=== PATIENT | male | born 1940 | race Hispanic/Latino ===

== ENCOUNTER → 2019-03-01 | Outpatient (CLI) | payer OTHER ==
[~2019-03-01] MED LIST: AEC81 PO; ATOR40TA69 PO; CARV6.25 PO; FURO20TA4 PO; Folic Acid/Vitamin B Comp W-C PO; HYDR-4068 PO; LISI2.5T2 PO; MONT10TA24 PO; SPIR25TA PO; TICA90TA PO; TORS20TA4 PO
== END | disposition home or self-care (01) ==
LOC: SHCH 13:41
PROVIDERS: ATTEND Internal Medicine Cardiovascular Disease
DX: I11.9 Hypertensive heart disease without heart failure (principal); I08.0 Rheumatic disorders of both mitral and aortic valves
CPT/HCPCS: 93306

== ENCOUNTER → 2019-07-09 | Outpatient (CLI) | payer OTHER ==
[~2019-07-09] VITALS: Ht 172.7 cm; Wt 77.4 kg
[~2019-07-09] MED LIST changes: +CEFAZOLIN SODIUM 1 GM VIAL IVP SCH; -FURO20TA4 PO; -LISI2.5T2 PO; +SODIUM CHLORIDE 0.9% 500ML 500 ML IV SCH; -SPIR25TA PO
[2019-07-09 08:42] LABS: BASOPHILS % (AUTO) 0.7 % (0.0-5.0); EOSINOPHILS % (AUTO) 1.9 % (0.0-8.0); HEMATOCRIT 44.1 % (42-54); LYMPHOCYTES % (AUTO) 18.3 % (21.0-51.0); MEAN CORPUSCULAR HEMOGLOBIN 31.2 pg (27.0-33.0); MEAN CORPUSCULAR HGB CONC 31.7 g/dL (32.0-36.0); MEAN CORPUSCULAR VOLUME 98.2 fL (79-99); MONOCYTES % (AUTO) 6.8 % (3.0-13.0); NEUTROPHILS % (AUTO) 71.7 % (40.0-77.0); PLATELET COUNT (AUTO) 257 K/uL (130-400); RED BLOOD CELL COUNT(AUTO) 4.49 MIL/uL (4.50-6.20); RED CELL DISTRIBUTION WIDTH 14.8 % (11.0-15.5); WHITE BLOOD COUNT (AUTO) 6.9 K/uL (4.8-10.8)
[2019-07-09 08:50] VITALS: BP 125/68
[2019-07-09 08:57] LABS: INR 1.05 (0.85-1.15); PARTIAL THROMBOPLASTIN TIME 28.2 SEC (26.3-35.5)
[2019-07-09 09:08] LABS: CREATININE 1.6 mg/dL (0.5-1.5); POTASSIUM 4.4 mmol/L (3.5-5.1)
--- NOTE | 2019-07-09 09:53 | NUR ---
SEAN PHILIP AWARE PT. IS NON-COMPLIANT WITH HIS MEDS AND ONLY TAKING TORSEMIDE AT THIS TIME. PER SEAN JAMESON OK TO PROCEED WITH PROCEDURE. NO FURTHER ORDERS AT THIS TIME.
== END | disposition home or self-care (01) ==
LOC: EDSTATUS 08:00 → DAH 10:00
PROVIDERS: ATTEND Internal Medicine Cardiovascular Disease
DX: Z01.818 Encounter for other preprocedural examination (principal); I11.0 Hypertensive heart disease with heart failure; I50.42 Chronic combined systolic (congestive) and diastolic (congestive) heart failure; I25.2 Old myocardial infarction; E78.5 Hyperlipidemia, unspecified; Z79.899 Other long term (current) drug therapy; Z87.891 Personal history of nicotine dependence; Z98.890 Other specified postprocedural states; Z79.84 Long term (current) use of oral hypoglycemic drugs
CPT/HCPCS: 36415; 80048; 85025; 85610; 85730

== ENCOUNTER 2021-02-05 06:38 | Day surgery (SDC) | payer OTHER ==
[2021-02-02 12:37] LABS: BASOPHILS % (AUTO) 0.7 % (0.0-5.0); EOSINOPHILS % (AUTO) 1.4 % (0.0-8.0); HEMATOCRIT 41.2 % (42-54); LYMPHOCYTES % (AUTO) 16.2 % (21.0-51.0); MEAN CORPUSCULAR HEMOGLOBIN 29.2 pg (27.0-33.0); MEAN CORPUSCULAR HGB CONC 32.5 g/dL (32.0-36.0); MEAN CORPUSCULAR VOLUME 89.8 fL (79-99); MONOCYTES % (AUTO) 8.9 % (3.0-13.0); NEUTROPHILS % (AUTO) 72.2 % (40.0-77.0); PLATELET COUNT (AUTO) 336 K/uL (130-400); RED BLOOD CELL COUNT(AUTO) 4.59 MIL/uL (4.50-6.20); RED CELL DISTRIBUTION WIDTH 14.9 % (11.0-15.5); WHITE BLOOD COUNT (AUTO) 8.6 K/uL (4.8-10.8)
[2021-02-02 12:50] LABS: CREATININE 1.2 mg/dL (0.5-1.5); POTASSIUM 4.7 mmol/L (3.5-5.1)
[2021-02-02 12:51] LABS: INR 1.02 (0.85-1.15); PROTHROMBIN TIME 11.1 SEC (9.6-11.6)
[2021-02-02 12:52] LABS: PARTIAL THROMBOPLASTIN TIME 30.9 SEC (26.3-35.5)
[2021-02-04 13:47] VITALS: BP 126/72
[~2021-02-05] VITALS: Ht 172.7 cm; Wt 76.5 kg
[2021-02-05] VITALS (15 sets, daily range): BP systolic 106–129; BP diastolic 60–80
[~2021-02-05 06:38] MED LIST changes: -AEC81 PO; -ATOR40TA69 PO; -CARV6.25 PO; -Folic Acid/Vitamin B Comp W-C PO; -HYDR-4068 PO; -MONT10TA24 PO; -SODIUM CHLORIDE 0.9% 500ML 500 ML IV SCH; -TICA90TA PO
[2021-02-05] MEDS ORDERED: LACTATED RINGERS 1000ML 1,000 ML IV ONE (06:44)
[2021-02-05] MEDS ORDERED: BACITRACIN 28.4 GM OINT TP ONE (06:57)
[2021-02-05] MEDS ORDERED: FENTANYL CITRATE PF 50 MCG/1 ML 2ML VIAL ONE (07:21)
[2021-02-05] MEDS ORDERED: LIDOCAINE PF 100MG/5ML (2%) SYRINGE 5ML ONE (07:21)
[2021-02-05] MEDS ORDERED: PROPOFOL 10 MG/ML 20ML VIAL IV ONE ×3 (07:22→09:50)
[2021-02-05] MEDS ORDERED: MIDAZOLAM HCL 1 MG/ML 2ML VIAL ONE (07:22)
[2021-02-05] MEDS ORDERED: CYCL5TAB PO (07:28)
[2021-02-05] MEDS ORDERED: VITAMIN D2 PO (07:28)
[2021-02-05] MEDS ORDERED: GABA-529 PO (07:28)
[2021-02-05] MEDS ORDERED: ZINC SULFATE PO (07:28)
[2021-02-05] MEDS ORDERED: LIDOCAINE 1%-EPI 1:100,000 20 ML VIAL IJ SCH (08:30)
== END 2021-02-05 12:45 | disposition home or self-care (01) ==
LOC: DAH 06:38 → EDSTATUS 07:30 → DAH 12:45
PROVIDERS: ATTEND Otolaryngology Plastic Surgery within the Head & Neck
DX: C76.0 Malignant neoplasm of head, face and neck (principal); Z20.822 Contact with and (suspected) exposure to COVID-19; L85.8 Other specified epidermal thickening; L57.0 Actinic keratosis; E11.9 Type 2 diabetes mellitus without complications; I44.7 Left bundle-branch block, unspecified; Z79.01 Long term (current) use of anticoagulants; Z95.5 Presence of coronary angioplasty implant and graft; Z98.890 Other specified postprocedural states; Z98.49 Cataract extraction status, unspecified eye
CPT/HCPCS: 11646; 14061; 36415; 71045; 80048; 85025; 85610; 85730; 87635; 88305; 88331; 93005; A4215; A4221; A4222; A4223; A4606; A4663; A4930; A6260; C9803; J0690; J2001; J2250; J2704 ×3; J3010; J3490 ×2; J7120